=== PATIENT | female | born 1970 | race Hispanic/Latino ===

== ENCOUNTER → 2019-04-29 | Outpatient (CLI) | payer BC ==
--- NOTE | 2019-04-29 11:17 | Diagnostic Imaging Report ---
Chest, 2 views, 04/28/2019. History: Asthma. Comparison: None available. Findings: The cardiomediastinal silhouette and pulmonary vasculature are within normal limits. The lungs are clear without evidence of consolidation or pleural effusion. There are no acute osseous or soft tissue abnormalities. Impression: No acute cardiopulmonary abnormality. Signed by: Nain Jaimes on 04/29/2019 11:14 AM
== END ==
LOC: RAD 09:20
PROVIDERS: ATTEND Family Medicine
DX: J45.909 Unspecified asthma, uncomplicated (principal)
CPT/HCPCS: 71046